=== PATIENT | female | born 1955 | race Asian ===

== ENCOUNTER 2023-05-30 08:06 | Inpatient (IN) | payer SELFPAY ==
[~2023-05-30] VITALS: Ht 160 cm; Wt 59.4 kg
[2023-05-30 08:11] VITALS: O2SAT 97
[2023-05-30 08:59] LABS: BASOPHILS % 0.2 % (0.0-2.0); EOSINOPHILS % 1.6 % (0.0-5.0); HEMATOCRIT. 41.1 % (36.0-48.0); HEMOGLOBIN. 13.3 g/dL (12.0-16.0); MEAN CORPUSCULAR HEMOGLOBIN 29.4 pg (28.0-32.0); MEAN CORPUSCULAR HGB CONC 32.4 g/dL (31.0-37.0); MEAN CORPUSCULAR VOLUME 90.7 fL (81.0-99.0); MEAN PLATELET VOLUME 7.3 fl (7.4-10.4); MONOCYTES % 6.7 % (2.0-8.0); NEUTROPHILS % 66.5 % (40.0-76.0); PLATELET 241 x1000/uL (130-400); RED BLOOD CELL COUNT 4.53 mill/uL (4.2-5.4); RED CELL DISTRIBUTION WIDTH 14.3 % (11.6-14.6); WHITE BLOOD COUNT 9.2 x1000/uL (4.5-11.0)
[2023-05-30] MEDS: SODIUM CHLORIDE 0.9% 1,000 ML IV ONE ×2 (09:00→13:38)
[2023-05-30 09:14] LABS: ALANINE AMINOTRANSFERASE 19 IU/L (10-49); ALBUMIN 4.5 g/dL (3.2-4.8); ASPARTATE AMINOTRANSFERASE 40 IU/L (<34); BILIRUBIN TOTAL 0.4 mg/dL (0.1-1.0); CARBON DIOXIDE 24 mEq/L (21-32); CHLORIDE 107 mEq/L (98-107); CREATININE 0.6 mg/dL (0.6-1.0); GLUCOSE 86 mg/dL (70-105); PROTEIN TOTAL 8.2 g/dL (6.0-8.3); SODIUM 138 mEq/L (136-145); UREA NITROGEN BLOOD 17 mg/dL (9-23)
[2023-05-30] MEDS: ONDANSETRON HCL 4MG/2ML INJ IV STA (09:37)
[2023-05-30] MEDS: KETOROLAC 30MG/ML VIAL IV STA (09:37)
[2023-05-30 10:24] LABS: INR 0.9; PROTHROMBIN TIME 10.3 sec (9.6-11.0)
[2023-05-30] MEDS ORDERED: DICYCLOMINE 10 MG/5 ML ORAL SYR PO STA (13:28)
[2023-05-30] MEDS: MORPHINE SULFATE 4 MG/ML INJ (FOR IV/IM USE) IV ONE (13:38)
[2023-05-30] MEDS ORDERED: DOCUSATE SODIUM 100MG CAPSULE PO PRN (13:45)
[2023-05-30] MEDS ORDERED: ONDANSETRON HCL 4MG/2ML INJ IV PRN (13:45)
[2023-05-30] MEDS ORDERED: ZOLPIDEM TARTRATE 5MG TABLET PO PRN (13:45)
[2023-05-30] MEDS ORDERED: MAGNESIUM/ALUMINUM HYDROXIDE/SIMETHICONE 30ML UDC PO PRN (13:45)
[2023-05-30] MEDS ORDERED: NITROGLYCERIN 0.4MG TABLET SL SL PRN (13:45)
[2023-05-30] MEDS ORDERED: GUAIFENESIN 200MG/10ML SUGAR FREE UDC PO PRN (13:45)
[2023-05-30] MEDS ORDERED: CLONIDINE 0.1MG TABLET PO PRN (13:45)
[2023-05-30] MEDS ORDERED: IPRATROPIUM/ALBUTEROL 0.5-3(2.5)MG/3ML NEB NEB PRN (13:45)
[2023-05-30] MEDS ORDERED: ACETAMINOPHEN 325MG TABLET PO PRN ×2 (13:45)
[2023-05-30 14:06] LABS: T4 FREE 1.41 ng/dL (0.89-1.76); THYROID STIMULATING HORMONE 3.15 uIU/mL (0.55-4.78)
[2023-05-30] MEDS: KETOROLAC 15MG/ML VIAL IV PRN (15:50)
[2023-05-30 18:38] VITALS: BP 98/60; PULSE 74; RESP 18; TEMP 98.3
[2023-05-30] MEDS: PANTOPRAZOLE SODIUM 40 MG/VIAL IV SCH (19:17)
[2023-05-30] MEDS: ENOXAPARIN 40MG/0.4ML SYR SUBCUT SCH (19:18)
[2023-05-30] MEDS: DEXT 5%/LACTATED RINGERS 1,000 ML IV SCH (19:19)
[2023-05-30 22:01] LABS: CREATINE KINASE 162 IU/L (34-145); CREATINE KINASE MB FRACTION 2.5 ng/mL (0.5-3.6); TROPONIN I HIGH SENSITIVITY < 4 ng/L (3.0-34)
[2023-05-30] MEDS ORDERED: IOHEXOL-300 100 ML BOTTLE ONE (22:45)
== END 2023-05-30 23:00 | disposition left against medical advice (07) | DRG 249 ==
LOC: ER 08:06 → EDBEDREQ 09:55 → 3WST 11:05 → EDBEDREQTM 11:06 → EDBEDREQ 11:06
PROVIDERS: ADMIT Internal Medicine; ATTEND Internal Medicine
DX: K52.9 Noninfective gastroenteritis and colitis, unspecified (principal)
CPT/HCPCS: 36415; 74178; 80053; 82550; 82553; 83036; 84439; 84443; 84484; 85025; 99285; C1893; C9113; J1650; J1885; J2270; J2405; J7030; Q9967